=== PATIENT | female | born 1955 | race African-American/Black ===

== ENCOUNTER 2017-11-13 18:25 | Inpatient (IN) | payer OTHER, MEDICAID ==
[~2017-11-13] VITALS: Ht 154.9 cm; Wt 49.0 kg
[2017-11-13 18:30] VITALS: Ht 154.9 cm; Wt 49.0 kg
[2017-11-13 19:00] LABS: BASOPHIL % 0.4 % (0-2); PLATELET COUNT 228 x10^3mcL (130-400)
[2017-11-13 19:06] LABS: RED CELL DISTRIBUTION WIDTH 15.6 % (11.5-14.5)
[2017-11-13 19:22] LABS: CK-MB 1.3 ng/mL (0-3.6)
[2017-11-13 19:26] LABS: CALCIUM 9.1 mg/dL (8.5-10.1); CARBON DIOXIDE 27.2 mmol/L (21-32); CREATININE SERUM 1.4 mg/dL (0.6-1.0); POTASSIUM SERUM 3.8 mmol/L (3.5-5.1)
[2017-11-13 19:31] LABS: FREE T4 0.76 ng/dL (0.76-1.46); FREE THYROXINE INDEX 1.8 ug/dL (1.4-4.5); T4(THYROXINE) 5.6 ug/dL (4.7-13.3)
[2017-11-13 19:36] LABS: ALBUMIN 3.7 g/dL (3.4-5.0); BILIRUBIN TOTAL 0.26 mg/dL (0.20-1.00); C REACTIVE PROTEIN 2.6 mg/dL (<=0.9); TOTAL PROTEIN, SERUM 7.6 g/dL (6.4-8.2)
[2017-11-13 19:53] LABS: ERYTHROCYTE SED RATE 13 mm/hr (0-30)
[2017-11-13 20:03] LABS: UA SPECIFIC GRAVITY 1.025 (1.005-1.035); microscopic required? YES; urine erythrocyte NEGATIVE (NEGATIVE)
[2017-11-13 20:15] LABS: T3 TOTAL 0.91 ng/mL
[2017-11-13] MEDS ORDERED: METFORMIN HYDR500 M1 PO (20:18)
[2017-11-13 21:00] VITALS: BP 94/69
[2017-11-14 03:54] VITALS: BP 94/69
[2017-11-14 06:13] VITALS: BP 129/76
[2017-11-14 09:49] LABS: BASOPHIL % 0.1 % (0-2); PLATELET COUNT 256 x10^3mcL (130-400)
[2017-11-14 09:56] LABS: CALCIUM 9.4 mg/dL (8.5-10.1); CARBON DIOXIDE 23.4 mmol/L (21-32); CREATININE SERUM 1.2 mg/dL (0.6-1.0); POTASSIUM SERUM 4.3 mmol/L (3.5-5.1)
[2017-11-14 09:59] LABS: RED CELL DISTRIBUTION WIDTH 15.3 % (11.5-14.5)
[2017-11-14 10:00] VITALS: BP 144/73
[2017-11-14 14:36] VITALS: BP 149/75
[2017-11-14 17:49] VITALS: BP 147/66
[2017-11-14 20:59] VITALS: BP 142/68
[2017-11-15 05:35] VITALS: BP 141/56
[2017-11-15 06:15] LABS: BASOPHIL % 0.1 % (0-2); PLATELET COUNT 246 x10^3mcL (130-400)
[2017-11-15 06:37] LABS: CALCIUM 9.6 mg/dL (8.5-10.1); CARBON DIOXIDE 23.6 mmol/L (21-32); POTASSIUM SERUM 4.4 mmol/L (3.5-5.1)
[2017-11-15 06:48] LABS: RED CELL DISTRIBUTION WIDTH 15.1 % (11.5-14.5)
[2017-11-15 08:41] VITALS: BP 146/73
[2017-11-15 10:17] VITALS: BP 146/73
== END 2017-11-15 14:52 | disposition home or self-care (01) | DRG 189 ==
LOC: ED 18:25 → DU 20:09
PROVIDERS: Internal Medicine; Specialist
DX: J96.00 Acute respiratory failure, unspecified whether with hypoxia or hypercapnia (principal); J44.1 Chronic obstructive pulmonary disease with (acute) exacerbation; J45.902 Unspecified asthma with status asthmaticus; N39.0 Urinary tract infection, site not specified; E11.9 Type 2 diabetes mellitus without complications; I10 Essential (primary) hypertension; I25.10 Atherosclerotic heart disease of native coronary artery without angina pectoris; Z79.4 Long term (current) use of insulin; Z68.27 Body mass index [BMI] 27.0-27.9, adult; F17.210 Nicotine dependence, cigarettes, uncomplicated; Z79.84 Long term (current) use of oral hypoglycemic drugs; Z91.14 Patient's other noncompliance with medication regimen
CPT/HCPCS: 82962; 83880; 84439; J1644; J1956; J2920; J2930; J7050; J7613; J7620; J7626; J7644; Q0092

== ENCOUNTER 2019-01-16 16:40 | Emergency (ER) | payer OTHER, MEDICAID ==
[~2019-01-16] VITALS: Ht 149.9 cm; Wt 61.2 kg
[~2019-01-16 16:40] MED LIST: METFORMIN HYDR500 M1 PO
[2019-01-16 18:41] LABS: BASOPHIL % 0.7 % (0-2); CALCIUM 9.5 mg/dL (8.5-10.1); CARBON DIOXIDE 23.1 mmol/L (21-32); CREATININE SERUM 1.1 mg/dL (0.6-1.0); PLATELET COUNT 297 x10^3mcL (130-400); POTASSIUM SERUM 4.2 mmol/L (3.5-5.1)
[2019-01-16 18:42] LABS: RED CELL DISTRIBUTION WIDTH 15.1 % (11.5-14.5)
[2019-01-16 18:46] LABS: ALBUMIN 3.7 g/dL (3.4-5.0); BILIRUBIN TOTAL 0.2 mg/dL (0.20-1.00); TOTAL PROTEIN, SERUM 7.7 g/dL (6.4-8.2)
[2019-01-16 19:53] VITALS: BP 129/82
== END 2019-01-16 19:53 | disposition home or self-care (01) ==
LOC: ED 16:40
PROVIDERS: Emergency Medicine
DX: N39.0 Urinary tract infection, site not specified (principal); J44.9 Chronic obstructive pulmonary disease, unspecified; I10 Essential (primary) hypertension; E11.9 Type 2 diabetes mellitus without complications
CPT/HCPCS: 36415; 87491; 87591

== ENCOUNTER 2019-06-05 17:14 | Emergency (ER) | payer OTHER, MEDICAID ==
[~2019-06-05] VITALS: Ht 149.9 cm; Wt 59.0 kg
[2019-06-05 18:15] VITALS: Ht 149.9 cm; Wt 59.0 kg
[2019-06-05 21:37] VITALS: BP 128/63
== END 2019-06-05 22:50 | disposition home or self-care (01) ==
LOC: ED 17:14
DX: J20.9 Acute bronchitis, unspecified (principal); F17.210 Nicotine dependence, cigarettes, uncomplicated; J18.9 Pneumonia, unspecified organism; J44.9 Chronic obstructive pulmonary disease, unspecified; I10 Essential (primary) hypertension; E11.9 Type 2 diabetes mellitus without complications; Z88.5 Allergy status to narcotic agent
CPT/HCPCS: 87804; 99406; J7512; J7613

== ENCOUNTER 2019-12-19 15:33 | Emergency (ER) | payer OTHER, MEDICAID ==
[~2019-12-19] VITALS: Ht 149.9 cm; Wt 59.9 kg
[2019-12-19 15:40] VITALS: Ht 149.9 cm; Wt 59.9 kg
[2019-12-19 17:19] LABS: microscopic required? YES; urine erythrocyte TRACE (NEGATIVE)
[2019-12-19 17:19] LABS: BASOPHIL % 0.4 % (0-2); PLATELET COUNT 239 x10^3mcL (130-400); RED CELL DISTRIBUTION WIDTH 14.2 % (11.5-14.5)
[2019-12-19 17:40] LABS: CALCIUM 9.4 mg/dL (8.5-10.1); CARBON DIOXIDE 20.8 mmol/L (21-32); CREATININE SERUM 1.2 mg/dL (0.6-1.0); POTASSIUM SERUM 4.1 mmol/L (3.5-5.1)
[2019-12-19 17:44] LABS: BILIRUBIN TOTAL 0.54 mg/dL (0.20-1.00); TOTAL PROTEIN, SERUM 7.6 g/dL (6.4-8.2)
[2019-12-19 19:11] VITALS: BP 112/65
== END 2019-12-19 19:11 | disposition home or self-care (01) ==
LOC: ED 15:33
PROVIDERS: Emergency Medicine
DX: N39.0 Urinary tract infection, site not specified (principal); J44.9 Chronic obstructive pulmonary disease, unspecified; I10 Essential (primary) hypertension; E11.9 Type 2 diabetes mellitus without complications; Z88.8 Allergy status to other drugs, medicaments and biological substances
CPT/HCPCS: 82962; Q0092